=== PATIENT | male | born 1970 | race Two or more races ===

== ENCOUNTER 2020-11-17 18:51 | Emergency (ER) | payer OTHER | END 2020-11-17 21:05 | disposition home or self-care (01) | LOC: FER 18:51 | DX: S93.602A Unspecified sprain of left foot, initial encounter (principal); S93.402A Sprain of unspecified ligament of left ankle, initial encounter; M25.552 Pain in left hip; E11.9 Type 2 diabetes mellitus without complications; M10.9 Gout, unspecified; Z79.84 Long term (current) use of oral hypoglycemic drugs; Z79.899 Other long term (current) drug therapy; W11.XXXA Fall on and from ladder, initial encounter | CPT/HCPCS: 73502; 73564; 73590; 73600; 73650 ==